=== PATIENT | male | born 1955 | race Caucasian/White ===

== ENCOUNTER → 2023-03-18 23:50 | Outpatient (CLI) | payer MEDICARE, SELFPAY ==
[2023-03-18 19:17] LABS: Basophils % 0.3 % (0.1-2.0); Eosinophils # 0.1 K/mm3 (0.0-0.4); Eosinophils % 2.3 % (0.1-12.0); Hemoglobin 15.5 g/dL (14.1-18.0); Lymphocytes # 2.1 K/mm3 (0.7-4.5); Lymphocytes % 41.5 % (10-50); Mean Corpuscular HGB Conc 32.4 g/dL (31.8-35.4); Mean Corpuscular Hemoglobin 28.8 pg (27.0-31.2); Mean Platelet Volume 9.6 fl (7.4-10.4); Monocytes # 0.4 K/mm3 (0.1-1.0); Monocytes % 8.8 % (1.7-9.3); Neutrophils # 2.3 K/mm3 (1.8-7.8); Platelet Count 186 K/mm3 (142-424); Red Cell Distribution Width 13.2 % (11.5-17.5)
[2023-03-18 19:26] LABS: Alanine Aminotransferase 22 U/L (12-78); Albumin Level 4.2 g/dl (3.5-5.0); Albumin/Globulin Ratio 1.4 (1.1-1.8); Alkaline Phosphatase 89 U/L (38-126); Anion Gap 12.3 mEq/L (5-15); Aspartate Amino Transferase 33 U/L (17-59); Bilirubin,Total 0.7 mg/dl (0.2-1.3); Blood Urea Nitrogen 19 mg/dl (9-20); Calcium 9.1 mg/dl (8.4-10.2); Carbon Dioxide 26 mmol/L (22.0-30.0); Chloride 107 mmol/L (98-107); Chol/HDL Ratio 4.2 (1-3.5); Cholesterol 190 mg/dl (140-200); Estimated Glomerular Filt Rate 67 ml/min (>60); GFR (African American) 81 ML/MIN (>60); Glucose 93 mg/dl (74-100); HDL Cholesterol 45 mg/dl (40-60); Potassium 4.3 mmoL/L (3.5-5.1); Sodium 141 mmol/L (136-145); Total Protein,Serum 7.2 g/dl (6.3-8.2); Triglycerides 57 mg/dl (30-150); VLDL Cholesterol 11 mg/dL (0-40)
[2023-03-18 19:37] LABS: Direct LDL Cholesterol 111.58 mg/dL (100-129)
[2023-03-18 19:56] LABS: Prostate Specific Ag Screen 0.6 ng/ml (0.0-4.0)
== END ==
PROVIDERS: PCP Family Medicine; Visit Provider Family Medicine
DX: E78.5 Hyperlipidemia, unspecified (principal); Z12.5 Encounter for screening for malignant neoplasm of prostate; Z00.00 Encounter for general adult medical examination without abnormal findings
CPT/HCPCS: 80053; 80061; 85025; G0103

== ENCOUNTER 2024-04-23 07:09 | Day surgery (SDC) | payer MEDICARE, SELFPAY ==
[2024-04-21 10:28] VITALS: BMI 25.3
[2024-04-23 07:21] VITALS: BP 133/83; PULSE 62; RESP 16; TEMP 36.4; O2SAT 98
[2024-04-23] MEDS: LACTATED RINGERS 1000ML 1,000 ML 25 ML IV (07:28)
--- NOTE | 2024-04-23 07:32 | EXP.ANES.CKL ---
[facility] Disclaimer: The information contained in this section may have been updated after the patient was seen, as this information can be updated by other users. Medical History Sleep apnea History of cataract Surgical History History of colonoscopy S/P right knee arthroscopy S/P left knee arthroscopy S/P excision of lipoma Family History Mother Breast cancer Father Esophageal cancer Social History Smoking Status: Former smoker alcohol intake: former substance use type: denies use current occupational status: retired Travel in the last 8 weeks: Inside the [facility] Anesthesia Checklist Patient Identification Patient Identification: Verbal (Name & ) Structural Data Admitted From: Home Planned Operative Procedure/s: colonoscopy Consent for Planned Operative Procedure(s) Verified: Yes NPO Status Verified Time NPO: 00:00 Airway Assessment Mallampati Score:: Class II C-Spine Mobility Assessed: Yes TMJ Mobility Assessed: Yes Dentition: Good Dentition Neurological Assessment Level of Consciousness: Awake, Alert and Appropriate Anesthesia Plan Anesthesia Risk discussed: Yes Anesthesia Plan: Verified ASA Class: II Anesthesia Type: MAC
--- NOTE | 2024-04-23 07:34 | EXP.HP ---
History of Present Illness *Admission Date: 04/23/24 *Reason for visit:: Screening *History of present illness: Mr. Ortiz is a 68-year-old gentleman who is here for screening colonoscopy. The examination is deemed medically necessary for colonoscopy. The patient has been seen, interviewed and examined prior to the procedure by both myself and the anesthesia provider. [facility] Disclaimer: The information contained in this section may have been updated after the patient was seen, as this information can be updated by other users. Medical History (Updated 04/23/24 @ 07:37 by Richard Lopez II, MD) Sleep apnea History of cataract Surgical History History of colonoscopy S/P right knee arthroscopy S/P left knee arthroscopy S/P excision of lipoma Family History Mother Breast cancer Father Esophageal cancer Social History (Updated 04/23/24 @ 07:32 by Javid Moreau CRNA) Smoking Status: Former smoker alcohol intake: former substance use type: denies use current occupational status: retired Travel in the last 8 weeks: Inside the [place] Other Medical History Have you received the Pneumonia Vaccine: No Review of Systems Review of Systems Review of systems (narrative): Negative *Cardiovascular Comments: Negative *Gastrointestinal Comments: Negative *Genitourinary Comments: Negative *Musculoskeletal Comments: Negative *Neurologic Comments: Negative Meds Home Medications and Allergies New Prescriptions to Start Prescriptions: Allergies Allergy/AdvReac Type Severity Reaction Status Date / Time No Known Allergies Allergy Verified 04/23/24 07:20 Exam Data for Last 24 hours Vital signs and Labs for Last 24 Hours: Temp Pulse Resp BP Pulse Ox O2 Del Method 97.6 F 62 16 133/83 98 Room Air 04/23/24 07:21 04/23/24 07:21 04/23/24 07:21 04/23/24 07:21 04/23/24 07:21 04/23/24 07:21 I & O for Last 24 hours: Intake & Output 04/20/24 04/21/24 04/22/24 04/23/24 23:59 23:59 23:59 23:59 Weight 187 lb *Routine HEENT Exam Head: Present normocephalic Eye: Present EOMI and PERRL ENT: Present mucous membranes moist *Routine Neck Exam Neck: Present supple *Routine Respiratory Exam Respiratory: Present CTA bilaterally *Routine Cardiovascular Exam Cardiovascular: Present RRR *Routine Abdominal Exam Abdominal: Present soft and normoactive bowel sounds; Absent tenderness *Routine Rectal Exam Rectal:: deferred *Routine Genitalia Exam Genitalia:: deferred *Routine Extremities Exam Extremities: Absent cyanosis, clubbing or edema *Routine Skin Exam Skin: Present warm; Absent rash *Routine Neurological Exam Neurological: Present alert and oriented X3 Assessment and Plan *Assessment and plan (1) Screening for colon cancer: Status: Acute Category: Medical Code(s): Z12.11 - Encounter for screening for malignant neoplasm of colon Plan A/P: 1. Screening for colon cancer is the preprocedural diagnosis. The patient will be anesthetized/sedated using MAC sedation. The patient has been seen and examined. Cardiac and lung assessment prior to the examination is stable. Proceed with planned colonoscopy
[2024-04-23 07:35] VITALS: O2SAT 98
--- NOTE | 2024-04-23 07:37 | P.PCN_ITS ---
[facility] Procedure Note Date: 04/23/24 Time: 07:47 Procedure Note:: Colonoscopy Procedure Report: Colonoscopy with cold snare polypectomy Endoscopist: Richard Lopez II, MD Referring physician: Taz Hooper MD Date of Procedure: April 23, 2024 Equipment: Olympus 190 variable stiffness pediatric colonoscope Sedation: MAC sedation Indication: Mr. Ortiz is a 68-year-old gentleman who is here for follow-up screening/surveillance colonoscopy. The patient's last colonoscopy was approximately 10 years ago. He reports no abdominal pain, weight loss, change in his bowel habits or rectal bleeding. He reports no family history of colon cancer. Procedure: Prior to the procedure, a history and physical exam was performed, and patient's medications and allergies were reviewed. The risks, benefits and alternatives of the sedation and procedure were discussed with the patient. All questions were answered and informed consent was obtained. The patient was brought to the procedure room. Patient identification and proposed procedure were verified by the physician and the nurse. The patient was placed in a left lateral decubitus position and the scope was passed under direct vision. Throughout the procedure, the patient's blood pressure, pulse, and oxygen saturations were og tored continuously. The colonoscopy was accomplished without difficulty. The patient tolerated the procedure well. Findings: On digital rectal examination there was normal rectal tone. There were no external hemorrhoids. The colonoscope was introduced through the anal canal to the rectum and advanced to the cecum. The ileocecal valve and appendiceal orifice were identified. The scope was advanced a short distance into the ileum which appeared grossly normal. The scope was then withdrawn into the colon. The cecum, ascending and transverse colon and mucosa were grossly normal. There was a single small sessile 5 mm polyp in the descending colon removed via cold snare polypectomy. There were scattered diverticuli throughout the descending and sigmoid colon (LEFT colon). The rectum itself was normal. Upon retroflexion within the rectum there were grade 1-2 internal hemorrhoids. The preparation was excellent throughout with [place] Preparation Score of 9. The cecal time was 11 minutes. Impression: 1. Diminutive 5 mm descending colon polyp 2. Left-sided diverticulosis 3. Grade 1-2 internal hemorrhoids Plan: I will follow-up the polyp histology and recommend repeat surveillance colonoscopy again in 7 years. I would encourage bulking fiber supplementation with psyllium on a long-term daily maintenance basis.
[2024-04-23 07:51] VITALS: BP 79/55; PULSE 61; RESP 18; TEMP 36.3; O2SAT 98
[2024-04-23 08:01] VITALS: BP 92/58; PULSE 60; RESP 18; O2SAT 99
[2024-04-23 08:11] VITALS: BP 122/58; PULSE 60; RESP 18; O2SAT 99
[2024-04-23 08:30] VITALS: BP 111/72; PULSE 64; RESP 18; O2SAT 99
== END 2024-04-23 08:30 | disposition home or self-care (01) ==
PROVIDERS: PCP Family Medicine; Visit Provider Internal Medicine Gastroenterology
PROC: (CPT 45385; principal; 2024-04-23 08:00)
DX: Z12.11 Encounter for screening for malignant neoplasm of colon (principal); D12.4 Benign neoplasm of descending colon; K57.30 Diverticulosis of large intestine without perforation or abscess without bleeding; K64.8 Other hemorrhoids
CPT/HCPCS: 45385; J7120

== ENCOUNTER 2025-03-25 10:07 | Outpatient (CLI) | payer MEDICARE, SELFPAY ==
--- OUTSIDE RECORDS SUMMARY | 2005-05-02 | XMS_ITS | Encounter Summary ---
Author Organization [facility] Address [address] [place] [address] Care Team Providers Care Marketing Communications Specialist Name Role Phone Unavailable Primary Care Provider Unavailabl e Encounter Details Date Type Department Care Team (Late st Contact Info) Description 05/02/2005 Hospital Encounter [facility] Division of Pediatric Otolaryngology [address] [place] [phone] Social History Tobacco Use Types Packs/Day Years Used Date Smoking Tobacco: Never Assessed Sex and Gender Information Value Date Recorded Sex Assigned at Not on file Legal Sex Male 5:18 AM EST Gender Identity Not on file Sexual Orientation Not on file documented as of this encounter Plan of Treatment Not on file documented as of this encounter Visit Diagnoses Not on filedocumented in this encounter
--- OUTSIDE RECORDS SUMMARY | 2005-05-02 | XMS_ITS | Encounter Summary ---
Author Organization [facility] Address [address] [place] [address] Care Team Providers Care Therapy Tech Name Role Phone Unavailable Primary Care Provider Unavailabl e Encounter Details Date Type Department Care Team (Late st Contact Info) Description 05/02/2005 Hospital Encounter [facility] Division of Audiology [address] [place] [phone] Social History Tobacco Use Types Packs/Day [...]
--- OUTSIDE RECORDS SUMMARY | 2006-10-09 | XMS_ITS | Encounter Summary ---
Author Organization [facility] Address [address] [place] [address] Care Team Providers Care Entry Level Manager Name Role Phone Unavailable Primary Care Provider Unavailabl e Encounter Details Date Type Department Care Team (Late st Contact Info) Description 10/09/[address] En[address] [facility] Division of Pediatric Otolaryngology [address] [place] [phone] Social History Tobacco Use Types Packs/Day [...]
[2025-03-25 15:16] LABS: Hematocrit 43.6 % (42.0-52.0); Hemoglobin 15.0 g/dL (14.1-18.0); Immature Granulocytes % 0.2 %; Mean Corpuscular HGB Conc 34.4 g/dL (31.8-35.4); Mean Corpuscular Hemoglobin 29.4 pg (27.0-31.2); Mean Corpuscular Volume 85.5 fl (80-94); Nucleated Red Blood Cells % 0 %; Platelet Count 179 K/mm3 (142-424); Red Blood Count 5.10 M/mm3 (4.60-6.20); Red Cell Distribution Width-SD 39.5 fL; White Blood Count 4.3 K/mm3 (4.8-10.8)
[2025-03-25 16:14] LABS: Alanine Aminotransferase 19 U/L (12-78); Albumin Level 4.3 g/dl (3.5-5.0); Albumin/Globulin Ratio 1.4 (1.1-1.8); Alkaline Phosphatase 67 U/L (38-126); Anion Gap 10.5 mEq/L (5-15); Aspartate Amino Transferase 29 U/L (17-59); Bilirubin,Total 0.9 mg/dl (0.2-1.3); Blood Urea Nitrogen 18 mg/dl (9-20); Calcium 9.1 mg/dl (8.4-10.2); Carbon Dioxide 26 mmol/L (22.0-30.0); Chloride 104 mmol/L (98-107); Cholesterol 176 mg/dl (140-200); Creatinine,Serum 1.00 mg/dl (0.66-1.25); Estimated Glomerular Filt Rate 74 ml/min (>60); GFR (African American) 90 ML/MIN (>60); Globulin 3.0 g/dL (1.3-3.2); Glucose 86 mg/dl (74-100); HDL Cholesterol 45 mg/dl (40-60); Potassium 4.5 mmoL/L (3.5-5.1); Sodium 136 mmol/L (136-145); Total Protein,Serum 7.3 g/dl (6.3-8.2); Triglycerides 77 mg/dl (30-150)
--- OUTSIDE RECORDS SUMMARY | 2025-03-26 13:19 | XMS_ITS | Clinical Summary ---
Author Organization [facility] Address [address] [place] [phone] Phone Care Team Providers Care Field Supervisor Name Role Phone Cal Burgos MD Primary Care Provider [phone] Social History Tobacco Use Types Packs/Day Years Used Date Smoking Tobacco: Never Assessed Food Insecurities Answer Date Recorded Worried about running out of food Not on file 11/05/2023 Food Bought Not on file 11/05/2023 Housing/Utilities Answer Date Recorded Worried about losing home Not on file 2023 Stayed outside house Not on file 11/05/2023 Unable to get utilities Not on file 11/05/19 24 Interpersonal Safety Answer Date Record ed Feel physically or emotionally unsafe where curr ently live Not on file 11/05/2023 Harm by anyone Not on file 11/05/2023 Emotionally Harmed Not on file 11/05/2023 Transportation Answer Date Recorded Worried about transportation Not on file Utilities Answer Date Recorded Worried about losing home Not on file 2023 Stayed outside house Not on file 11/05/2023 Unable to get utilities Not on file 11/05/19 24 Sex and Gender Information Value Date Recorded Sex Assigned at Not on file Legal Sex Male 2:46 PM EDT Gender Identity Not on file Sexual Orientation Not on file Plan of Treatment Health Maintenance Due Date Last Done Comments Hepatitis C Screening 1955 Colonoscopy 2000 PSA YEARLY 2005 Pneumococcal 50+ (1 of 1 - PCV) 2005 Shingrix (#1) 2005 Influenza Vaccine (#1) 2025 0, 06/05/2016, 04/22/2012 DTap,Tdap,and Td (2 - Td or Tdap) 04/18/2026 04/18/2016 RSV Vaccine (60+ or ) (1 - 1-dose 75+ series) 2030 HPV Aged Out No longer eligi ble based on patient's age to complete this topic Meningococcal conjugate nani nt 4 (MCV4) Aged Out No longer eligible b ased on patient's age to complete this topic RSV Immunization (<20 months) Aged Out No longer eligible based on patient's age to complete this topic Care Teams Field Supervisor Relationship Specialty Start Date End Date Cal Burgos MD PCP - General Family Medicine 11/18/23
--- OUTSIDE RECORDS SUMMARY | 2025-03-26 13:19 | XMS_ITS ---
Author Organization Unknown TREATMENT PLAN Planned Care Start Date Provider Encounter for Check-up [phone] [facility]
--- OUTSIDE RECORDS SUMMARY | 2025-03-26 13:19 | XMS_ITS | Referral Summary ---
Author Organization [facility] Address [address] [place] [phone] Phone Care Team Providers Care Subway Operator Name Role Phone Cal Burgos MD Primary Care Provider Social History Tobacco Use Types Packs/Day Years Used Date Smoking Tobacco: Never Assessed Food Insecurities Answer Date Recorded Worried about running out of food Not on file 11/05/2023 Food Bought Not on file 11/05/2023 Housing/Utilities Answer Date Recorded Worried about losing home Not on file 2023 Stayed outside house Not on file 11/05/2023 Unable to get utilities Not on file 11/05/19 Interpersonal Safety Answer Date Record ed Feel [...] to get utilities Not on file 11/05/19 Sex and Gender Information Value Date Recorded Sex Assigned at Not on file Legal Sex Male 2:46 PM EDT Gender Identity Not on file Sexual Orientation Not on file Plan of Treatment Not on file Care Teams Subway Operator Relationship Specialty Start Date End Date Cal Burgos MD PCP - General Family Medicine 11/18/23
--- OUTSIDE RECORDS SUMMARY | 2025-03-26 13:19 | XMS_ITS | Clinical Summary ---
Author Organization [facility] Address [address] [place] [address] Care Team Providers Care Legal Compliance Officer Name Role Phone Unavailable Primary Care Provider Unavailabl e Source Comments [facility] is fully rolled out with thefollowing exceptions:General Clinical Research [facility] Social History Tobacco Use Types Packs/Day Years Used Date Smoking Tobacco: Never Assessed Sex and Gender Information Value Date Recorded Sex Assigned at Not on file Legal Sex Male 5:18 AM EST Gender Identity Not on file Sexual Orientation Not on file Plan of Treatment Health Maintenance Due Date Last Done Comments MMR IMMUNIZATION (1 of 1 - S tandard series) 1956 DTAP/Tdap/Td IMMUNIZATION (1 - Tdap) 1962 VARICELLA IMMUNIZATION (1 of 2 - 13+ 2-dose series) 1968 AMB SEASONAL FLU VACCINE (#1) 03/08/2025 COVID-19 Vaccine (1 - 2023-2 5 season) 2025 Respiratory Syncytial Virus (RSV) >60yo or (1 - 1-dose 75+ series) 2030 HEPATITIS B IMMUNIZATION Aged Out No longer eligible based on patient's age to complete this topic HIB IMMUNIZATION Aged Out No longer e ligible based on patient's age to complete this topic HPV IMMUNIZATION Aged Out No longer e ligible based on patient's age to complete this topic IPV IMMUNIZATION Aged Out No longer e ligible based on patient's age to complete this topic MCV4 IMMUNIZATION Aged Out No longer eligible based on patient's age to complete this topic MENINGOCOCCAL B VACCINE Aged Out No l onger eligible based on patient's age to complete this topic Respiratory Syncytial Virus (RSV) <20mo Aged Out No longer eligible b ased on patient's age to complete this topic
--- OUTSIDE RECORDS SUMMARY | 2025-03-26 13:19 | XMS_ITS | Encounter Summary ---
Author Organization [facility] Address [address] [place] [address] Phone Care Team Providers Care Powder Coat Painter Name Role Phone Cal Burgos MD Primary Care Provider [phone] Reason for Visit * Reason Comments Question For Provider Patient Concern Encounter Details Date Type Department Care Team ([facility] st Contact Info) Description 11/18/2023 Telephone [facility] Audiology [address] [place] [address] Rob Castillo MA, [facility] [address] [place], [place] [id number] Social History Tobacco Use Types Packs/Day Years [...] on file documented as of this encounter Miscellaneous Notes * Telephone Encounter - Elaina Obrien - 12/16/2023 12:23 PM EDT Marianela from [employer] calling to advise that patient is receiving calls for payment, and that bill will paid by [employer] around January 22. If needed she can be reached at [phone] xt [phone]. * Telephone Encounter - Elaina Obrien - 11/18/2023 11:49 AM EDT Marianela from [employer] calling to see if there are questions following appointment today. Advised that all of the charges would be workers comp, she can be reached [phone] xt [phone]. documented in this encounter Plan of Treatment Not on file documented as of this encounter Visit Diagnoses Not on filedocumented in this encounter Care Teams Powder Coat Painter Relationship Specialty Start Date End Date Cal Burgos MD PCP - General Family Medicine 11/18/23 documented as of this encounter
== END 2025-03-25 23:59 | disposition home or self-care (01) ==
LOC: LAB.DROPOF 03-26 13:17
PROVIDERS: PCP Family Medicine; Visit Provider Family Medicine
DX: Z13.6 Encounter for screening for cardiovascular disorders (principal); Z12.5 Encounter for screening for malignant neoplasm of prostate; R13.10 Dysphagia, unspecified; N34.2 Other urethritis; R30.0 Dysuria
CPT/HCPCS: 80053; 80061; 85025; 87086; G0103